=== PATIENT | male | born 1980 | race Caucasian/White ===

== ENCOUNTER 2016-05-04 05:24 | Day surgery (SDC) | payer OTHER, BC ==
[2016-05-04 06:33] VITALS: BMI 26.4
[2016-05-04] MEDS ORDERED: ROPIVACAINE HCL 0.5% 30ML VIAL ONE (07:25)
[2016-05-04] MEDS ORDERED: MIDAZOLAM HCL 2 MG/2 ML SINGLE DOSE VIAL ONE ×2 (07:26)
[2016-05-04] MEDS ORDERED: ceFAZolin SODIUM 1 GM VIAL ONE (08:13)
[2016-05-04] MEDS ORDERED: LIDOCAINE HCL/PF 2% SDV 5ML VIAL ONE (08:13)
[2016-05-04] MEDS ORDERED: PROPOFOL 20 ML ONE ×3 (08:14→08:25)
[2016-05-04] MEDS ORDERED: ROCURONIUM BROMIDE 50 MG/5 ML VIAL ONE (08:14)
[2016-05-04] MEDS ORDERED: ceFAZolin SODIUM 1 GM VIAL IVPB ONE (08:35)
[2016-05-04] MEDS ORDERED: DEXAMETHASONE SOD PHOSPHATE 4 MG/1 ML VIAL ONE (08:52)
[2016-05-04] MEDS ORDERED: KETOROLAC TROMETHAMINE 30 MG/1 ML VIAL ONE (08:52)
[2016-05-04] MEDS ORDERED: GLYCOPYRROLATE 0.2 MG/1 ML VIAL ONE (09:25)
[2016-05-04] MEDS ORDERED: NEOSTIGMINE METHYLSULFATE 0.5 MG/ML - 10 ML MDV ONE (09:25)
--- NOTE | 2016-05-04 09:44 | OP ---
Operative Note - Note: Operative Date: 05/04/16 Pre-Operative Diagnosis: right shoulder subacromial impingement, ACJ OA Operation: right shoulder arthroscopy, subacromial decompression, ACJ resection Post-Operative Diagnosis: Same as Pre-op Surgeon: Jaydon Sparks Anesthesiologist/ACUTE CARE PHYSICIAN: Sheryl Castillo Anesthesia: General, Local Specimens Removed: shavings Estimated Blood Loss (mls): 0 Blood Volume Replaced (mls): 0 Fluid Volume Replaced (mls): 1,000 Operative Report Dictated: Yes
[2016-05-04] MEDS ORDERED: ONDANSETRON 4 MG/2 ML VIAL IVPUSH PRN (09:59)
[2016-05-04] MEDS ORDERED: ACETAMINOPHEN 325 MG TABLET (FP) PO PRN (09:59)
[2016-05-04] MEDS ORDERED: oxyCODONE HCL 5 MG TABLET PO PRN (09:59)
[2016-05-04] MEDS ORDERED: LACTATED RINGERS SOLUTION 1,000 ML IV SCH (10:00)
[2016-05-04 12:21] VITALS: BP 105/71; PULSE 68; TEMP 98.3
--- NOTE | 2016-06-02 13:06 | OP ---
DATE OF OPERATION: 05/04/2016 PREOPERATIVE DIAGNOSIS: Right shoulder subacromial impingement, acromioclavicular joint arthritis, rotator cuff tendinosis. POSTOPERATIVE DIAGNOSIS: Right shoulder subacromial impingement, acromioclavicular joint arthritis, rotator cuff tendinosis. PROCEDURE: Right shoulder arthroscopy, subacromial decompression, and distal clavicle excision. SURGEON: Jaydon Piedra MD ANESTHESIA: Braulio Early CRNA, right interscalene block, LMA anesthesia. DRAINS: None. COMPLICATIONS: None. BLOOD LOSS: Minimal. BLOOD GIVEN: None. FLUID REPLACEMENT: 700 mL. INDICATIONS: This patient is a 35-year-old male with a preoperative diagnosis of right shoulder impingement syndrome and AC joint arthritis. After understanding the potential risks, complications, alternatives, benefits to surgery versus nonsurgical treatment, the patient elected to undergo this procedure. DESCRIPTION OF PROCEDURE: The patient was brought to the operating room. Peripheral IV place. IV sedation given. Right interscalene block was performed. LMA anesthesia was induced. The patient was placed into the beach chair position with ample padding throughout. The right upper extremity was prepped and draped in the usual sterile fashion. The bony landmarks were marked out with a marking pen. Posterior portal established, and the diagnostic glenohumeral arthroscopy was performed. Inside the joint, it looked good. Rotator cuff looked good. There was no labral tear. There was no glenohumeral arthritis, no loose bodies. The shoulder looked normal. Next, our attention was turned to the subacromial space. Under direct visualization, lateral portal was established with a spinal needle. A green cannula was introduced into the space. A soft tissue bursectomy was performed/extensive debridement performed with an [employer]thro[employer] wand. This revealed a large, subacromial bony spur and subclavicular spur. A 5.5-mm oval bur was used to take off and do a subacromial decompression of both the subacromial spur and the distal clavicle/subclavicular sputum. The joint was still quite close. The area was copiously irrigated and washed out. Shaved used to remove all debris. The top surface of the rotator cuff looked good. The arm was put through a full range of motion. Next, I did make an anterior portal 1st with guidance of the spinal needle then a No. 15 scalpel blade then a green cannula and did a formal AC joint resection because it looked so close and arthritic. This was done with a 5.5-mm oval bur. Therefore, the width of the AC joint resection was 5.5 mm. The shaver was introduced. All debris removed. All of the arthroscopy equipment removed. Excess saline removed. The arthroscopy portal was removed with nylon sutures. Aquacel dressing. Patient was placed into the sling. There were no complications during the case. The patient tolerated the procedure well and was brought to the ambulatory recovery room in stable condition. JAYDON PIEDRA M.D. [id number]
== END 2016-05-04 12:05 | disposition home or self-care (01) ==
LOC: JASU-SURG 05:24 → MERGE 05:24 → JASU-SURG 12:05
PROVIDERS: ATTEND Orthopaedic Surgery
PROC: 0RNJ4ZZ Release Right Shoulder Joint, Percutaneous Endoscopic Approach (ICD-10-PCS; 2016-05-04)
PROC: 0PB94ZZ Excision of Right Clavicle, Percutaneous Endoscopic Approach (ICD-10-PCS; principal; 2016-05-04 08:00)
DX: M75.41 Impingement syndrome of right shoulder (principal); M13.811 Other specified arthritis, right shoulder; M77.8 Other enthesopathies, not elsewhere classified
CPT/HCPCS: 88304-TC; 94760

== ENCOUNTER 2018-02-06 01:45 | Emergency (ER) | payer OTHER ==
[2018-02-06 02:49] VITALS: BP 136/96; PULSE 80; TEMP 98; BMI 27.3
--- NOTE | 2018-02-06 03:15 | PDOC ---
History of Present Illness - General Chief Complaint: Non EmpBld/Body Flud Exposure Stated Complaint: R/O EXPOSURE, YFD Time Seen by Provider: 02/06/18 02:16 - History of Present Illness Initial Comments: 02/06/18 03:08 The patient is a 37 year old male, with no significant past medical history, who presents to the emergency department s/p blood exposure. 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 The blood was on his arms for approximately 15 minutes. He denies any open wounds on his arms. He is unaware if the patient is HIV/Hep B positive. He was not wearing a mask at the time of the exposure and is unsure if he got it into his eyes. He states his vaccines including Hep B are up to date. He denies ingesting any blood. He denies any accidental needle sticking. He denies any recent fevers, chills, headache or dizziness. He denies any recent nausea, vomit, diarrhea or constipation. He denies any recent chest pain or shortness of breath. He denies any recent dysuria, frequency, urgency or hematuria. Allergies: NKDA Past surgical history: None reported. Social History: Nonsmoker. Denies EtOH use and recreational drug use. Past History - Past Medical History Allergies/Adverse Reactions: Allergies Allergy/AdvReac Type Severity Reaction Status Date / Time No Known Drug Allergies Allergy Verified 02/05/17 10:09 Home Medications: Ambulatory Orders Naproxen [Naprosyn -] 500 mg PO BID PRN #14 tablet 02/05/17 Anemia: No Asthma: No Cancer: No Cardiac Disorders: No CVA: No COPD: No CHF: No Dementia: No Diabetes: No GI Disorders: No Disorders: No HTN: No Hypercholesterolemia: No Liver Disease: No Seizures: No Thyroid Disease: No - Surgical History Abdominal Surgery: No Appendectomy: No Cardiac Surgery: No Cholecystectomy: No Lung Surgery: No Neurologic Surgery: No Orthopedic Surgery: No - Immunization History Immunization Up to Date: Yes - Suicide/Smoking/Psychosocial Hx Smoking Status: No Smoking History: Never smoked Have you smoked in the past 12 months: No Number of Cigarettes Smoked Daily: 0 Cigars Per Day: 0 Information on smoking cessation initiated: No Hx Alcohol Use: No Drug/Substance Use Hx: No Substance Use Type: None Hx Substance Use Treatment: No Review of Systems - Review of Systems Comments:: 02/06/18 03:10 "GENERAL/CONSTITUTIONAL: No fever or chills. No weakness. HEAD, EYES, EARS, NOSE AND THROAT: No change in vision. No ear pain or discharge. No sore throat. GASTROINTESTINAL: No nausea, vomiting, diarrhea or constipation. GENITOURINARY: No dysuria, frequency, or change in urination. CARDIOVASCULAR: No chest pain or shortness of breath. RESPIRATORY: No cough, wheezing, or hemoptysis. MUSCULOSKELETAL: No joint or muscle swelling or pain. No neck or back pain. SKIN: No rash NEUROLOGIC: No headache, vertigo, loss of consciousness, or change in strength/ sensation. ENDOCRINE: No increased thirst. No abnormal weight change. HEMATOLOGIC/LYMPHATIC: No anemia, easy bleeding, or history of blood clots. ALLERGIC/IMMUNOLOGIC: No hives or skin allergy." *Physical Exam - Vital Signs Last Vital Signs Temp Pulse Resp BP Pulse Ox 98.0 F 80 17 136/96 100 02/06/18 02:00 02/06/18 02:00 02/06/18 02:00 02/06/18 02:00 02/06/18 02:00 - Physical Exam Comments: 02/06/18 03:11 GENERAL: Awake, alert, and fully oriented, in no acute distress HEAD: No signs of trauma EYES: PERRLA, EOMI, sclera anicteric, conjunctiva clear ENT: Oropharynx clear without exudates. Moist mucosa NECK: Normal ROM, supple LUNGS: Breath sounds equal, clear to auscultation bilaterally. No wheezes, and no crackles HEART: Regular rate and rhythm, normal S1 and S2, no murmurs, rubs or gallops ABDOMEN: Soft, nontender, normoactive bowel sounds. No guarding, no rebound. No masses EXTREMITIES: Normal range of motion, no edema. No clubbing or cyanosis. No cords , erythema, or tenderness BACK: No midline spinal tenderness in cervical/thoracic/lumbar region NEUROLOGICAL: Normal speech, cranial nerves intact, 5/5 strength in all 4 extremities, normal sensation to light touch in all 4 extremities, normal gait SKIN: Warm, Dry, normal turgor, no rashes or lesions noted. ED Treatment Course - LABORATORY CBC & Chemistry Diagram: 02/06/18 03:17 02/06/18 02:47 Medical Decision Making - Medical Decision Making 02/06/18 03:34 37yo M with no PMH presents to the ED after blood exposure to intact skin on arms. Pt does not believe anything got into his eyes or other membranes. No open wounds on exam. No PEP advised as this is low risk exposure. HBV vaccine UTD per pt. Will check baseline labs and have pt f/u with occupational health tomorrow. 02/06/18 04:11 Baseline labs wnl thusfar HIV neg, hep panel pending. Call back order placed Pt requests DC home Pt well appearing I discussed the physical exam findings, ancillary test results and final diagnoses with the patient. I answered all of the patient's questions. The patient was satisfied with the care received and felt comfortable with the discharge plan and treatment plan. The patient will call their primary care physician within 24 hours to arrange follow-up and will return to the Emergency Department with any new, persistent or worsening symptoms. *DC/Admit/Observation/Transfer Diagnosis at time of Disposition: Occupational exposure in workplace - Discharge Dispostion Disposition: HOME Condition at time of disposition: Stable Decision to Admit order: No - Referrals - Patient Instructions Printed Discharge Instructions: How to Handle Body Fluid Exposure -- Non- Healthcare Worker (At Home, Caregi Additional Instructions: Follow up with occupational health today as discussed. Make sure your hepatitis B vaccine is up to date and if not, make sure you get the vaccine at occupational health. Return to the emergency department if you have any new, worsening, or concerning symptoms. - Post Discharge Activity Forms/Work/School Notes: Back to Work - Attestations Physician Attestion: 02/06/18 04:30 I, Dr. Ethel Yuen MD, attest that this document has been prepared under my direction and personally reviewed by me in its entirety. I further attest, that it accurately reflects all work, treatment, procedures and medical decision -making performed by me.
[2018-02-06] MEDS ORDERED: HIV POST EXPOSURE PROPHYLAXIS KIT PO ONE (03:31)
[2018-02-06 03:41] LABS: BASO % 0.8 % (0-2.0); EOS % 3.4 % (0-4.5); HEMATOCRIT 47.6 % (35.4-49); HEMOGLOBIN 16.6 GM/dL (11.7-16.9); LYMPH % 24.7 % (8-40); MCH 30.8 pg (25.7-33.7); MCHC 34.9 g/dl (32.0-35.9); MEAN CELL VOLUME 88.2 fl (80-96); MEAN PLT VOLUME 10.5 fl (7.5-11.1); MONO % 7.6 % (3.8-10.2); NEUT % 63.5 % (42.8-82.8); PLATELET COUNT 214 K/MM3 (134-434); RBC 5.39 M/mm3 (4.00-5.60); WHITE BLOOD COUNT 8.3 K/mm3 (4.0-10.0)
[2018-02-06] MEDS: HIV POST EXPOSURE PROPHYLAXIS KIT NR ONE ×2 (03:50→04:26)
[2018-02-06 04:06] LABS: ALBUMIN 4.4 g/dl (3.4-5.0); ALK PHOS 82 U/L (45-117); ANION GAP 6 MMOL/L (8-16); BILIRUBIN,TOTAL 0.2 mg/dL (0.2-1); BLOOD UREA NITROGEN 24 mg/dL (7-18); CALCIUM 9.2 mg/dL (8.5-10.1); CHLORIDE 104 mmol/L (98-107); CHOLESTEROL 201 mg/dL (50-200); CO2 28 mmol/L (21-32); CREATININE 1.2 mg/dL (0.55-1.3); GAMMA GLUTAMYL TRANSPEPTIDASE 23 U/L (5-85); GLUCOSE,RANDOM 92 mg/dL (74-106); LDH 193 U/L (87-246); PHOSPHOROUS 4.3 mg/dL (2.5-4.9); POTASSIUM 4.5 mmol/L (3.5-5.1); SGOT/AST 24 U/L (15-37); SGPT/ALT 32 U/L (13-61); SODIUM 138 mmol/L (136-145); TOT PROT 7.7 g/dl (6.4-8.2); TRIGLYCERIDES 155 mg/dL (0-150); URIC ACID 4.8 mg/dL (2.6-7.2)
[2018-02-06] MEDS ORDERED: DIPHTH,PERTUSS(ACELL),TET 0.5 ML DISP.SYRIN IM ONE (04:14)
[2018-02-07 06:07] LABS: HBsAG SCREEN Negative (Negative)
== END 2018-02-06 04:30 | disposition home or self-care (01) ==
LOC: JER 01:45
PROC: 3E0234Z Introduction of Serum, Toxoid and Vaccine into Muscle, Percutaneous Approach (ICD-10-PCS; principal; 2018-02-06)
DX: Z77.21 Contact with and (suspected) exposure to potentially hazardous body fluids (principal); X58.XXXA Exposure to other specified factors, initial encounter; Y93.89 Activity, other specified; Y92.89 Other specified places as the place of occurrence of the external cause; Y99.0 Civilian activity done for income or pay
CPT/HCPCS: 36415; 80053; 82465; 82977; 83615; 84100; 84478; 84550; 85025; 86317; 86706; 86803; 87340; 87389; 90715; 99281-25

== ENCOUNTER 2019-10-31 04:53 | Day surgery (SDC) | payer OTHER ==
[2019-10-30 12:52] VITALS: BMI 27.6
--- NOTE | 2019-10-31 12:17 | HP ---
Admitting History and Physical - Admission Chief Complaint: Left post surgical hip pain History of Present Illness: The patient complains of left hip pain. History Source: Patient Limitations to Obtaining History: No Limitations - Smoking History Smoking history: Never smoked Have you smoked in the past 12 months: No Aproximately how many cigarettes per day: 0 - Alcohol/Substance Use Hx Alcohol Use: No Home Medications - Allergies Allergies/Adverse Reactions: Allergies Allergy/AdvReac Type Severity Reaction Status Date / Time No Known Drug Allergies Allergy Verified 10/30/19 12:52 - Home Medications Home Medications: Ambulatory Orders NK [No Known Home Medication] 10/30/19 Review of Systems - Review of Systems Constitutional: reports: No Symptoms Eyes: reports: No Symptoms HENT: reports: No Symptoms Neck: reports: No Symptoms Cardiovascular: reports: No Symptoms Respiratory: reports: No Symptoms Gastrointestinal: reports: No Symptoms Genitourinary: reports: No Symptoms Breasts: reports: No Symptoms Reported Musculoskeletal: reports: Joint Pain, Other ( Left Hip) Integumentary: reports: No Symptoms Neurological: reports: No Symptoms Endocrine: reports: No Symptoms Hematology/Lymphatic: reports: No Symptoms Psychiatric: reports: No Symptoms Physical Examination Vital Signs: Vital Signs Temperature 97.3 F L 10/31/19 09:49 Pulse Rate 67 10/31/19 09:49 Respiratory Rate 20 10/31/19 09:49 Blood Pressure 119/74 10/31/19 09:49 O2 Sat by Pulse Oximetry (%) 99 10/31/19 09:49 Constitutional: Yes: Well Nourished, No Distress, Calm Eyes: Yes: WNL, Conjunctiva Clear, EOM Intact HENT: Yes: WNL, Atraumatic, Normocephalic Neck: Yes: WNL, Trachea Midline Cardiovascular: Yes: Regular Rate and Rhythm Respiratory: Yes: WNL, Regular Gastrointestinal: Yes: WNL Musculoskeletal: Yes: Other (Left Hip Pain end range) Neurological: Yes: WNL ...Motor Strength: WNL Imaging - Results X-ray: Image Reviewed Assessment/Plan The patient has left hip pain at end ROM s/p left hip labral repair. 1. I will perform Left hip diagnostic Intrarticular injection under flouroscopic guidance.
[2019-10-31] MEDS ORDERED: BUPIVACAINE HCL/PF 0.25% (2.5MG/ML) 10 ML VIAL ONE (12:56)
[2019-10-31] MEDS ORDERED: BUPIVACAINE HCL 0.25% 125 MG/50 ML VIAL INF ONE (13:03)
[2019-10-31] MEDS ORDERED: LIDOCAINE HCL 1%, 10 MG/ML (20ML VIAL) INF ONE (13:04)
[2019-10-31 13:37] VITALS: BP 131/78; PULSE 64; TEMP 98.2
--- NOTE | 2019-11-05 14:07 | PROC ---
Procedure Note Procedure: Preprocedure Diagnosis: Hip Pain Post Procedure Diagnosis: same Anesthesia:Local Procedure Performed: Left hip Intrarticulare Local Anesthetic Injection After the risks and benefits were explained, informed consent was obtained. The patient was then taken to the procedure room and positioned supine on the procedure table. Time out was performed. The region overlying the Left hip joint was identified using fluoroscopy. The skin was prepped and draped in the usual sterile fashion. The skin and soft tissues were anesthetized using 1% lidocaine. Using fluoroscopic guidance, a 22 gauge 3.5 inch spinal needle was then introduced to the hip joint at the center of the junction of the femoral neck. Omnipaque 240 confirmed appropriate needle placement. Next 7 cc of .25% bupivacaine was then injected. The patient tolerated the procedure well and there were no complications. The patient was taken to the post procedure recovery area in good condition. Vital signs remained stable before, during, and after the procedure. The patient was given oral and written follow-up instructions. The patient was given a follow up appointment with me in the near future. Akin Patel DO
== END 2019-10-31 13:30 | disposition home or self-care (01) ==
LOC: JASU-SURG 04:53
PROVIDERS: ATTEND Pain Medicine Pain Medicine
PROC: BW1CYZZ Fluoroscopy of Lower Extremity using Other Contrast (ICD-10-PCS; 2019-10-31)
PROC: 3E0U3BZ Introduction of Anesthetic Agent into Joints, Percutaneous Approach (ICD-10-PCS; principal; 2019-10-31 11:30)
DX: M25.552 Pain in left hip (principal); G89.18 Other acute postprocedural pain
CPT/HCPCS: 76000-TC-FY

== ENCOUNTER 2020-11-13 23:55 | Emergency (ER) | payer OTHER ==
[2020-11-14 00:54] VITALS: BMI 28.8
[2020-11-14] MEDS ORDERED: SODIUM CHLORIDE 0.9% 500 ML INFUS.BAG IV ONE (01:39)
[2020-11-14 02:26] LABS: HEMATOCRIT 46.2 % (35.4-49); HEMOGLOBIN 16.1 GM/dL (11.7-16.9); MCH 30.4 pg (25.7-33.7); MCHC 34.8 g/dl (32.0-35.9); MEAN CELL VOLUME 87.3 fl (80-96); MEAN PLT VOLUME 10.5 fl (7.5-11.1); PLATELET COUNT 170 10^3/uL (134-434); RBC 5.29 M/mm3 (4.00-5.60); RDW 13.1 % (11.9-15.9); WHITE BLOOD COUNT 11.9 K/mm3 (4.0-10.0)
[2020-11-14 02:31] LABS: ALBUMIN 4.2 g/dl (3.4-5.0); CALCIUM 8.6 mg/dL (8.5-10.1)
[2020-11-14 02:34] LABS: CREATININE 1.3 mg/dL (0.55-1.3)
[2020-11-14 02:36] LABS: BILIRUBIN,TOTAL 0.8 mg/dL (0.2-1); TOT PROT 7.6 g/dl (6.4-8.2)
[2020-11-14 05:00] VITALS: BP 108/58; PULSE 89; TEMP 99.6
[2020-11-14 05:03] LABS: ANISOCYTOSIS 0; HELMET CELLS 0; HOWELL-JOLLY BODIES 0; MACROCYTOSIS 0; OVALOCYTE 0; PLATELET ESTIMATE DECREASED; ROULEAU 0; SICKELED CELLS 0; TARGET CELLS 0; TEAR DROP CELLS 0; TOXIC GRANULATION 0
== END 2020-11-14 03:15 | disposition home or self-care (01) ==
LOC: JER 23:55
DX: K52.9 Noninfective gastroenteritis and colitis, unspecified (principal)
CPT/HCPCS: 36415; 80053; 83690; 85025; 99283-25

== ENCOUNTER 2021-09-26 04:27 | Emergency (ER) | payer OTHER, BC ==
[2021-09-26 04:42] VITALS: BP 137/91; PULSE 75; TEMP 98.1; BMI 29.0
[2021-09-26] MEDS ORDERED: DIPHTH,PERTUSS(ACELL),TET 0.5 ML DISP.SYRIN IM ONE ×2 (04:44→04:46)
[2021-09-26] MEDS ORDERED: ACETAMINOPHEN 325 MG TABLET (FP) PO ONE (04:45)
[2021-09-26] MEDS ORDERED: IBUPROFEN 400 MG TABLET (FP) PO ONE ×2 (04:46)
[2021-09-26] MEDS ORDERED: ACETAMINOPHEN 325 MG TABLET (FP) ONE (04:46)
== END 2021-09-26 05:43 | disposition home or self-care (01) ==
LOC: JER 04:27
PROC: 0HQFXZZ Repair Right Hand Skin, External Approach (ICD-10-PCS; principal; 2021-09-26)
PROC: 3E0234Z Introduction of Serum, Toxoid and Vaccine into Muscle, Percutaneous Approach (ICD-10-PCS; 2021-09-26)
DX: S61.411A Laceration without foreign body of right hand, initial encounter (principal); S41.111A Laceration without foreign body of right upper arm, initial encounter; W25.XXXA Contact with sharp glass, initial encounter
CPT/HCPCS: 73070-TC-RT-FY; 73130-TC-RT-FY; 90715; 99284-25

== ENCOUNTER 2023-03-08 04:15 | Day surgery (SDC) | payer OTHER ==
[2023-03-07 13:29] VITALS: BMI 28.5
[2023-03-08] MEDS ORDERED: PROPOFOL 40 ML ONE (10:17)
[2023-03-08] MEDS ORDERED: MIDAZOLAM HCL 2 MG/2 ML SINGLE DOSE VIAL ONE (10:18)
[2023-03-08] MEDS ORDERED: FENTANYL CITRATE/PF 50 MCG/ML VIAL ONE (10:18)
[2023-03-08] MEDS ORDERED: ROPIVACAINE HCL 0.5% 30ML VIAL ONE (10:59)
[2023-03-08] MEDS ORDERED: DEXAMETHASONE SOD PHOSPHATE 10 MG/1 ML VIAL ONE (10:59)
[2023-03-08] MEDS ORDERED: ceFAZolin SODIUM 1 GM VIAL IVPB ONE (11:40)
[2023-03-08] MEDS ORDERED: oxyCODONE HCL 5 MG TABLET PO PRN (12:43)
[2023-03-08] MEDS ORDERED: PROMETHAZINE HCL 25 MG/1 ML VIAL IVPB PRN (12:43)
[2023-03-08] MEDS ORDERED: ONDANSETRON 4 MG/2 ML VIAL IVPUSH PRN (12:43)
[2023-03-08] MEDS ORDERED: LACTATED RINGERS SOLUTION 1,000 ML IV SCH (12:45)
[2023-03-08 16:33] VITALS: BP 120/60; PULSE 71; RESP 20; TEMP 97.6
== END 2023-03-08 14:20 | disposition home or self-care (01) ==
LOC: JASU-SURG 04:15
PROVIDERS: ATTEND Orthopaedic Surgery
PROC: 0RBK4ZZ Excision of Left Shoulder Joint, Percutaneous Endoscopic Approach (ICD-10-PCS; 2023-03-08)
PROC: 0PBB4ZZ Excision of Left Clavicle, Percutaneous Endoscopic Approach (ICD-10-PCS; principal; 2023-03-08 11:00)
DX: M75.41 Impingement syndrome of right shoulder (principal); M19.012 Primary osteoarthritis, left shoulder
CPT/HCPCS: 94760; J1100

== ENCOUNTER 2023-08-29 20:55 | Emergency (ER) | payer BC, OTHER ==
[2023-08-29 21:07] VITALS: BP 127/89; PULSE 82; RESP 17; TEMP 98.2; BMI 28.5
== END 2023-08-29 21:31 | disposition home or self-care (01) ==
LOC: FER 20:55
DX: R21 Rash and other nonspecific skin eruption (principal); L30.9 Dermatitis, unspecified
CPT/HCPCS: 99283-25